=== PATIENT | female | born 1960 | race Caucasian/White ===

== ENCOUNTER 2016-09-16 08:38 | Emergency (ER) | payer MEDICARE, MEDICAID ==
[~2016-09-16] VITALS: Ht 157.5 cm; Wt 90.7 kg
[~2016-09-16 08:38] MED LIST: ALBU8.5H2 IH; AMLO5TAB2 PO; BENZ200C25 PO; BUDE0.5A2 IH; BUDE0.5A7 INH; BUDE6HFA IH; BUSP5POW MC; BUSP5TAB59 PO; CEPH-507 PO; CLAR-19 PO; CLIN-81 PO; CYCL10TA9 PO; FAMO20TA5 PO; HYDR-3584 PO; HYDR-700 PO; HYDR25CA5 PO; IPRA3AMP11 INH; LEVO500T69 PO; LEVO500T78 PO; LISI1TAB6 PO; LOSA1TAB70 PO; MEMA5TAB PO; MEMA5TAB16 PO; METH4TAB PO; METO-270 PO; METO-272 PO; METO25TA PO; Multivitamins/Minerals Therap PO; NCT21TD TD; OXYC-471 PO; PRD20T PO; ROPI0.5T2 PO; RPN.25T PO; SULF1TAB38 PO; TIOT18CA IH; TIZA4CAP8 PO; TIZA4TAB3 PO; TRAM50TA2 PO; TRAZ100T92 PO; TRAZ150T42 PO; TRZ100T PO; WALK1EAC23 MC; [UNRECOGNIZED DRUG - CODE] PO
--- NOTE | 2016-09-16 09:10 | ED Cough/URI ---
General Chief Complaint: Cough/Cold/Flu Symptoms Stated Complaint: COUGH/SORE THROAT/HEADACHE Nursing Triage Note: PT C/O COUGH/URI X 2 WEEKS. PT HAS BEEN SEEN AND TX BY PCP, BUT REPORTS SHE WANTS SOMETHING DIFFERENT FOR HER COUGH. Source: patient History of Present Illness Time seen by provider: 09:05 Initial Comments This 56 white female presents with a persistent nonproductive cough over last week that is not improved with either azithromycin or amoxicillin. Patient has been using Tessalon Perles without improvement in her persistent cough which is Her up through the night. Past medical history includes previous pneumonia. The patient has used steroids in the past with good effect. The patient is under the care of Dr. Will. Allergies and Home Medications Allergies Coded Allergies: NKANo Known Allergies (Verified Allergy, Unknown, 11/12/05) Home Medications Buspirone HCl 5 Gm Powder 5 GM MC BID PRN PRN ANXIETY (Reported) Cephalexin 500 Mg Capsule #15 500 MG PO TID Prescribed by: SHEILA MALONE on 05/15/16 1352 Hydroxyzine HCl 25 Mg Tablet 25 MG PO QID PRN PRN ANXIETY (Reported) Losartan/Hydrochlorothiazide 1 Each Tablet 1 TAB PO DAILY (Reported) Memantine HCl 5 Mg Tablet 5 MG PO BID (Reported) Metoprolol Succinate 25 Mg Tab.er.24h 25 MG PO DAILY (Reported) Ropinirole HCl 0.5 Mg Tablet 0.5-1 MG PO TID (Reported) TAKES 1 TO 2 (0.5MG) TABLETS Tizanidine HCl 4 Mg Capsule 4 MG PO TID PRN PRN MUSCLE SPASMS (Reported) Trazodone HCl 100 Mg Tablet 150 MG PO HS PRN PRN sleep (Reported) TAKES 1 & 1/2 (100MG) TABLETS Constitutional: No chills, No fever EENTM: No ear pain Respiratory: see HPI coughNo short of breath Cardiovascular: No chest pain Gastrointestinal: No nausea, No vomiting Genitourinary: No dysuria, No frequency Musculoskeletal: No back pain Skin: No rash Psychiatric/Neurological: No Symptoms Reported Hematologic/Lymphatic: No Symptoms Reported Past Guaibba-Qlwufr-Mngyps Hx Patient Social History Alcohol Use: Denies Use Recreational Drug Use: No Smoking Status: Current Everyday Smoker Type Used: Cigarettes Former Smoker/When Quit: Oct 16, 2013 Recent Foreign Travel: No Contact w/Someone Who Travel: No Recent Infectious Disease Expo: No Recent Hopitalizations: No Physical Abuse Screen: No Sexual Abuse: No Immunizations Up To Date Tetanus Booster (TDap): Unknown PED Vaccines UTD: No Date of Pneumonia Vaccine: Sep 10, 2015 Date of Influenza Vaccine: May 11, 2015 Seasonal Allergies Seasonal Allergies: Yes Surgeries HX Surgeries: Yes (back surgery, hysterectomy, tubal , hiatal hernia repair) Surgeries: Abdominal, Hysterectomy, Orthopedic Respiratory Hx Respiratory Disorders: Yes Respiratory Disorders: Pneumonia, COPD Cardiovascular Hx Cardiac Disorders: Yes Cardiac Disorders: Hypertension Neurological Hx Neurological Disorders: Yes Neurological Disorders: Concussion Reproductive System Hx Reproductive Disorders: No Sexually Transmitted Disease: No HIV/AIDS: No Female Reproductive Disorders: Ovarian Cyst Genitourinary Hx Genitourinary Disorders: No Gastrointestinal Hx Gastrointestinal Disorders: Yes Gastrointestinal Disorders: Gastroesophageal Reflux, Irritable Bowel Musculoskeletal Hx Musculoskeletal Disorders: Yes Musculoskeletal Disorders: Chronic Back Pain Endocrine Hx Endocrine Disorders: No HEENT HX ENT Disorders: No Loss of Vision: Denies Hearing Impairment: Denies Cancer Hx Cancer: No Psychosocial Hx Psychiatric Problems: Yes Behavioral Health Disorders: Sleep Difficulties, Anxiety, Suicide Attempts Integumentary HX Skin/Integumentary Disorder: No Blood Transfusions Hx Blood Disorders: No Adverse Reaction to a Blood Tr: No Reviewed Nursing Assessment Reviewed/Agree w Nursing PMH: Yes Family Medical History Significant Family History: Heart Disease, Other Conditions/Hx Family Medial History: Alzheimer's disease 19 FATHER, Onset:Unknown Dementia 19 MOTHER, Onset:Unknown No Family History of: AIDS Abdominal aortic aneurysm Jermain's disease Alcoholism Aphasia Arthritis Asthma Cancer of mouth Cardiovascular disease Cataracts Colon cancer Completed stroke Congenital disease Congenital heart disease Coronary thrombosis Cystic fibrosis Deafness or hearing loss Diabetes mellitus Drug abuse Dysphasia Fibrocystic disease of breast Gastroenteritis Glaucoma Headache disorder Hypercholesterolemia Hypertension Infertility Kidney disease Myocardial infarction Neoplasm Not obtainable due to adoption Osteoporosis Parkinson's disease Prostate cancer Psychosocial problem Respiratory disorder Seizure disorder Severe allergy Thyroid disease Tuberculosis Visual disorder Physical Exam Vital Signs Vital Sign - Last 12Hours 09/16/16 08:55 Temp 97.8 Pulse 93 Resp 16 B/P 144/77 Pulse Ox 97 O2 Delivery Room Air Capillary Refill : Less Than 3 Seconds General Appearance: WD/WN no apparent distress HEENT: normal ENT inspection Neck: normal inspection Respiratory: lungs clear other (nearly persistent nonproductive cough.) Cardiovascular: regular rate, rhythm no murmur Gastrointestinal: non tender soft Extremities: normal range of motion Neurologic/Psychiatric: no motor/sensory deficits alert normal mood/affect Skin: normal color warm/dryNo rash Progress/Results/Core Measures Results/Orders Vital Signs/I&O Vital Sign - Last 12Hours 09/16/16 09/16/16 08:55 08:55 Temp 97.8 Pulse 93 Resp 16 B/P 144/77 Pulse Ox 97 O2 Delivery Room Air Room Air Blood Pressure Mean: 99 Progress Note : Time: 09:08 Progress Note I discussed the patient's presentation with her. She declined a chest x-ray or laboratory evaluation. She would like to use an alternate antibiotic. Her primary need however is to suppress her cough. We selected a treatment plan of Bactrim, Tussionex, and a 3 day course of prednisone. She agreed follow-up with Dr. Motta on Sunday if not better and to return over the if she had a further problems or questions. Departure Impression Impression: Primary Impression: Upper respiratory infection Qualified Code: J06.9 - Acute upper respiratory infection, unspecified Disposition: HOME, SELF-CARE Condition: Unchanged Departure-Patient Inst. Decision time for Depature: 09:10 Referrals: SARAH WILL DO (PCP/Family) Primary Care Physician Patient Instructions: Acute Bronchitis, Adult (DC) Add. Discharge Instructions: Bactrim, Tussionex, and prednisone as prescribed. Come back this weekend if any problems. Close follow-up with Dr. Will on Sunday. All discharge instructions reviewed with patient and/or family. Voiced understanding. CARLY FABIAN MD Sep 16, 2016 09:10
[2016-09-16 09:16] VITALS: BP 144/77
== END 2016-09-16 09:16 | disposition home or self-care (01) ==
LOC: EDUNIT# 08:38 → ER 08:39
DX: J06.9 Acute upper respiratory infection, unspecified (principal); I10 Essential (primary) hypertension; J44.9 Chronic obstructive pulmonary disease, unspecified; F17.210 Nicotine dependence, cigarettes, uncomplicated; Z79.899 Other long term (current) drug therapy
CPT/HCPCS: 99283

== ENCOUNTER 2016-11-13 03:01 | Emergency (ER) | payer MEDICARE, MEDICAID ==
[~2016-11-13] VITALS: Ht 157.5 cm; Wt 77.1 kg
[2016-11-13] MEDS ORDERED: RT-ALBUTEROL SULF 2.5 MG/3 ML PRE-MIX VIAL INH STA (03:06)
[2016-11-13] MEDS ORDERED: DEXAMETHASONE 4 MG/ML SDV (DECADRON) IH ONE (03:15)
[2016-11-13] MEDS ORDERED: predniSONE 20 MG TAB PO ONE (03:15)
[2016-11-13] MEDS ORDERED: RT-ALBUTEROL/IPRATROPIUM 3 ML (DUONEB) VIAL INH ONE (03:15)
--- NOTE | 2016-11-13 03:23 | ED Cough/URI ---
General Chief Complaint: Respiratory Problems Stated Complaint: SOA Nursing Triage Note: Pt reports congestion x1 week. Pt now c/o SOA. Pt has hx COPD Source: patient Exam Limitations: no limitations History of Present Illness Time seen by provider: 03:04 Initial Comments Here with report of congestion for the last week and shortness of air tonight. Reports that she is coughing quite a bit and feeling wheezy. States that she's had 2 episodes of pneumonia over the last 3 years. Main concern is the cough tonight. She did not see her doctor this week because she thought she was getting better. Coughing is what caused her the greatest concern tonight. Timing/Duration: week, getting worse Severity/Quality: moderate, dry cough Prior Episodes/Possible Cause: occasional episodes Modifying Factors: Worse With Activity, Worse With Coughing, Improves With Rest Associated Symptoms: cough, fever/chills, nasal congestion, nasal drainage, shortness of breath, sore throat, wheezing Allergies and Home Medications Allergies Coded Allergies: NKANo Known Allergies (Verified Allergy, Unknown, 11/12/05) Home Medications Buspirone HCl 5 Gm Powder 5 GM MC BID PRN PRN ANXIETY (Reported) Cephalexin 500 Mg Capsule #15 500 MG PO TID Prescribed by: SHEILA MALONE on 05/15/16 1352 Hydroxyzine HCl 25 Mg Tablet 25 MG PO QID PRN PRN ANXIETY (Reported) Losartan/Hydrochlorothiazide 1 Each Tablet 1 TAB PO DAILY (Reported) Memantine HCl 5 Mg Tablet 5 MG PO BID (Reported) Metoprolol Succinate 25 Mg Tab.er.24h 25 MG PO DAILY (Reported) Prednisone 20 Mg Tab #8 40 MG PO DAILY Prescribed by: CARLITOS JOHNSON on 11/13/16 0325 Promethazine HCl/Codeine 5 Ml Syrup #60 5 ML PO Q6H PRN PRN COUGH Prescribed by: CARLITOS JOHNSON on 11/13/16 0325 Ropinirole HCl 0.5 Mg Tablet 0.5-1 MG PO TID (Reported) TAKES 1 TO 2 (0.5MG) TABLETS Tizanidine HCl 4 Mg Capsule 4 MG PO TID PRN PRN MUSCLE SPASMS (Reported) Trazodone HCl 100 Mg Tablet 150 MG PO HS PRN PRN sleep (Reported) TAKES 1 & 1/2 (100MG) TABLETS Constitutional: see HPINo chills, No fever EENTM: nose congestion see HPI throat pain Respiratory: see HPI cough short of breath wheezing Cardiovascular: no symptoms reported Gastrointestinal: no symptoms reportedNo nausea, No vomiting Genitourinary: no symptoms reported Musculoskeletal: no symptoms reported Skin: no symptoms reported All Other Systems Reviewed Negative Unless Noted: Yes Past Srasgeo-Vszgic-Frvuru Hx Patient Social History Alcohol Use: Occasionally Uses Recreational Drug Use: No Smoking Status: Former Smoker Type Used: Cigarettes Former Smoker/When Quit: Oct 16, 2013 Recent Foreign Travel: No Contact w/Someone Who Travel: No Recent Infectious Disease Expo: No Recent Hopitalizations: No Immunizations Up To Date Tetanus Booster (TDap): Unknown PED Vaccines UTD: No Date of Pneumonia Vaccine: Sep 10, 2015 Date of Influenza Vaccine: May 11, 2015 Seasonal Allergies Seasonal Allergies: Yes Surgeries HX Surgeries: Yes (back surgery, hysterectomy, tubal , hiatal hernia repair) Surgeries: Abdominal, Hysterectomy, Orthopedic Respiratory Hx Respiratory Disorders: Yes Respiratory Disorders: Pneumonia, COPD Cardiovascular Hx Cardiac Disorders: Yes Cardiac Disorders: Hypertension Neurological Hx Neurological Disorders: Yes Neurological Disorders: Concussion Reproductive System Hx Reproductive Disorders: No Sexually Transmitted Disease: No HIV/AIDS: No Female Reproductive Disorders: Ovarian Cyst Genitourinary Hx Genitourinary Disorders: No Gastrointestinal Hx Gastrointestinal Disorders: Yes Gastrointestinal Disorders: Gastroesophageal Reflux, Irritable Bowel Musculoskeletal Hx Musculoskeletal Disorders: Yes Musculoskeletal Disorders: Chronic Back Pain Endocrine Hx Endocrine Disorders: No HEENT HX ENT Disorders: No Loss of Vision: Denies Hearing Impairment: Denies Cancer Hx Cancer: No Psychosocial Hx Psychiatric Problems: Yes Behavioral Health Disorders: Sleep Difficulties, Anxiety, Suicide Attempts Integumentary HX Skin/Integumentary Disorder: No Blood Transfusions Hx Blood Disorders: No Adverse Reaction to a Blood Tr: No Reviewed Nursing Assessment Reviewed/Agree w Nursing PMH: Yes Family Medical History Significant Family History: Heart Disease, Other Conditions/Hx Family Medial History: Alzheimer's disease 19 FATHER, Onset:Unknown Dementia 19 MOTHER, Onset:Unknown Physical Exam Vital Signs Vital Sign - Last 12Hours 11/13/16 03:04 Temp 98.1 Pulse 90 Resp 18 B/P 119/65 Pulse Ox 98 O2 Delivery Room Air Capillary Refill : Less Than 3 Seconds General Appearance: WD/WN no apparent distress HEENT: PERRL/EOMI pharynx normal Neck: full range of motion supple Respiratory: no accessory muscle use wheezing expiration other (forced wheezes on expiration) Cardiovascular: regular rate, rhythm no murmur Gastrointestinal: non tender soft Extremities: non-tender normal inspection Neurologic/Psychiatric: alert oriented x 3 Skin: normal color warm/dry Progress/Results/Core Measures Results/Orders My Orders Orders-CARLITOS JOHNSON MD Albuterol Pre-Mix Nebs (Rt) (Proventil P (11/13/16 03:06) Albuterol/Ipra Inhalation Soln (Duoneb I (11/13/16 03:15) Dexamethasone Injection (Decadron Inject (11/13/16 03:15) Svn Sm Volume Nebulizer Rt-Rfs (11/13/16 03:06) Svn Sm Volume Nebulizer Rt-Rfs (11/13/16 03:06) Chest Pa/Lat (2 View) (11/13/16 03:06) Prednisone Tablet (Deltasone Tablet) (11/13/16 03:15) Promethazine/ Codeine Syrup (Phenergan W (11/13/16 04:00) Medications Given in ED Current Medications Medications Dose Ordered Sig/Federico Route Start Time Stop Time Status Last Admin Dose Admin Albuterol/ Ipratropium 3 ml ONCE ONCE INH 11/13/16 03:15 11/13/16 03:16 DC 11/13/16 03:24 3 ML Dexamethasone Sodium Phosphate 16 mg ONCE ONCE IH 11/13/16 03:15 11/13/16 03:16 DC 11/13/16 03:24 16 MG Prednisone 40 mg ONCE ONCE PO 11/13/16 03:15 11/13/16 03:16 DC 11/13/16 03:55 40 MG Vital Signs/I&O Vital Sign - Last 12Hours 11/13/16 11/13/16 03:04 03:24 Temp 98.1 Pulse 90 Resp 18 B/P 119/65 Pulse Ox 98 98 O2 Delivery Room Air Blood Pressure Mean: 83 Progress Note : Progress Note Seen and evaluated. Albuterol neb and duo neb ordered. Decadron 16 mg inhaled ordered. Prednisone 40 mg by mouth. Monitor patient. Chest x-ray ordered. No acute findings. Better after treatments. Go pack of Phenergan with codeine cough syrup 1 dose. Discharged home with return precautions. Patient verbalize understanding instructions and agreement with plan. Diagnostic Imaging Diagonstic Imaging: Xray Plain Films/CT/US/NM/MRI: chest Comments No acute findings Reviewed: Reviewed by Me Departure Impression Impression: Primary Impression: Acute bronchitis Qualified Code: J20.9 - Acute bronchitis, unspecified Disposition: HOME, SELF-CARE Condition: Stable Departure-Patient Inst. Decision time for Depature: 03:23 Referrals: SARAH FLEMING DO (PCP/Family) Primary Care Physician Patient Instructions: Acute Bronchitis, Adult (DC) Add. Discharge Instructions: All discharge instructions reviewed with patient and/or family. Voiced understanding. Take medications as directed. Follow-up with your Dr. in 2-3 days for recheck. Return for worse pain, fever, vomiting, weakness, breathing problems or other concerns as needed. Scripts Promethazine HCl/Codeine (Prometh-Codein 6.25-10 mg/5 ml)5 Ml Syrup5 Ml PO Q6H PRN COUGH #60 ML Ref 0 Prov:CARLITOS JOHNSON MD 11/13/16 Prednisone 20 Mg Tab40 Mg PO DAILY #8 TAB Prov:CARLITOS JOHNSON MD 11/13/16 CARLITOS JOHNSON MD Nov 13, 2016 03:23
[2016-11-13] MEDS ORDERED: PRD20T PO (03:25)
[2016-11-13] MEDS ORDERED: PROM5SYR PO (03:25)
[2016-11-13] MEDS ORDERED: PROMETHAZINE/ CODEINE SYRUP 5 ML UDC PO ONE (04:00)
[2016-11-13 04:13] VITALS: BP 109/72
--- NOTE | 2016-11-13 07:52 | Diagnostic Imaging Report ---
INDICATION: Cough, congestion. Compared 05/13/2016. FINDINGS: The lungs are clear. The heart and vessels normal. There is no effusion or pneumothorax. IMPRESSION: No acute-appearing abnormality. Dictated by: Dictated on workstation # [id number]
== END 2016-11-13 04:13 | disposition home or self-care (01) ==
LOC: EDUNIT# 03:01 → ER 03:03
DX: J20.9 Acute bronchitis, unspecified (principal); J44.9 Chronic obstructive pulmonary disease, unspecified; Z79.899 Other long term (current) drug therapy; Z87.891 Personal history of nicotine dependence
CPT/HCPCS: 71020; 94640; 99282

== ENCOUNTER → 2016-12-13 | Outpatient (CLI) | payer MEDICARE, MEDICAID ==
[~2016-12-13] MED LIST changes: +PROM5SYR PO
--- NOTE | 2016-12-13 15:09 | ECHOCARDIOGRAPHY REPORT ---
PROCEDURE PHYSICIAN: ELVIE DAVIS DATE OF PROCEDURE: 12/13/2016 TWO DIMENSIONAL ECHOCARDIOGRAM REPORT PRIMARY PHYSICIAN: OTHER PHYSICIAN: REFERRING PHYSICIAN: Dr. Ned Titus ORDERING PHYSICIAN: INDICATION FOR THE PROCEDURE: 1. Dyspnea. 2. Peripheral edema. MEASUREMENTS DERIVED VALUES LV DIAMETER (LAX) NORMALS NORMALS Diastolic 3 (3.6-5.2) Eject. Fract. 60% (60%+/-6%) Systolic (2.3-3.9) Diastolic Vol. % Shortening (0.22-0.42) Systolic Vol. Aortic Root IVS THICKNESS Diastolic 0.8 (0.6-1.1) LVPW THICKNESS Diastolic 0.8 (0.6-1.1) LA DIAMETER Systolic 3 (2.1-3.7) FINDINGS: 1. Technically difficult study. 2. The left ventricle is normal in size with normal contractility. Endocardium was not well visualized in all segments. Systolic function appeared to be normal. Estimated ejection fraction 60%. Diastolic dysfunction is suggested by Doppler. 3. The left atrium is normal in size. No clot or thrombus were seen within the left atrium. 4. The right atrium and right ventricle are normal in size. No clot or thrombus were seen within the right side. 5. Mitral valve is normal in morphology with mild mitral regurgitation noted by color Doppler flow. No mitral valve prolapse. No mitral valve stenosis. 6. Aortic valve leaflets were not well visualized. There is no significant aortic valve stenosis or regurgitation seen. 7. Tricuspid valve is normal in morphology. Color Doppler flow across tricuspid valve shows trace tricuspid regurgitation. Doppler across tricuspid valve estimated pulmonary artery pressure of 11+ right atrial pressure. 8. Pulmonic valve is functioning normally. 9. No pericardial effusion. CONCLUSION: 1. Normal left ventricular size and systolic function. Endocardium was not well visualized in all segments. Estimated ejection fraction 60%. 2. Diastolic dysfunction is suggested by Doppler. 3. Mild mitral and tricuspid regurgitation. 4. Estimated pulmonary artery pressure of 20 mmHg, improvement compared to the study of April 2016. Job ID: [id number] Dictated Date: 12/13/2016 14:42:20 [employer] Other Ranks Date: 12/13/2016 15:04:44 / elissa
== END ==
LOC: CARD 11:20
PROVIDERS: ATTEND Family Medicine
DX: R06.02 Shortness of breath (principal); R60.0 Localized edema
CPT/HCPCS: 93306

== ENCOUNTER 2017-03-11 19:21 | Emergency (ER) | payer MEDICARE, MEDICAID ==
[~2017-03-11] VITALS: Ht 160 cm; Wt 99.8 kg
[~2017-03-11 19:21] MED LIST changes: +BACL10TA PO; +DOXY100C2 PO; +FURO40TA4 PO; +MICO90PO TOP; +ROPI1TAB2 PO; +SUVO10TA2 PO
--- NOTE | 2017-03-11 19:30 | ED Headache ---
General Chief Complaint: Head/Cervical Problems Stated Complaint: FALL HEAD INJ Source: patient Exam Limitations: no limitations History of Present Illness Time seen by provider: 19:28 Initial Comments To ER per EMS from a local [facility]. [facility] staff reports that they found her on the floor at about 4 p.m. today. I believe that she fallen. Since they helped her up, she's had a progressive increase in confusion. She is not on any blood thinners and this includes not even aspirin. She is known to be at the facility for rehabilitation prior to going home. She is a former alcoholic with history of psychosis and pseudoseizure. She was recently released from [facility] [place] Timing/Duration: 1 week Severity/Quality: moderate Prior Headaches/Recent Trauma: no recent headache/trauma Associated Symptoms: confusion Allergies and Home Medications Allergies Coded Allergies: NKANo Known Allergies (Verified Allergy, Unknown, 11/12/05) Home Medications Furosemide 40 Mg Tablet, 40 MG PO DAILY, (Reported) Losartan/Hydrochlorothiazide 1 Each Tablet, 1 TAB PO DAILY, (Reported) Metoprolol Succinate 25 Mg Tab.er.24h, 25 MG PO DAILY, (Reported) Miconazole Nitrate 90 Gm Powder, 1 GM TOP BID for 14 Days, #1 Prescribed by: NED BAR on 02/15/17 1509 Ropinirole HCl 1 Mg Tablet, 1 MG PO BID@0700,2200, (Reported) Ropinirole HCl 1 Mg Tablet, 2 MG PO 1600, (Reported) TAKES 2 (1 MG) TABLETS Suvorexant 10 Mg Tablet, 10 MG PO HS, #30 Ref 0 Prescribed by: NED BAR on 02/15/17 1509 Trazodone HCl 100 Mg Tablet, 100 MG PO HS, (Reported) Constitutional: see HPI Eyes: No Symptoms Reported Ears, Nose, Mouth, Throat: no symptoms reported Respiratory: no symptoms reported Cardiovascular: no symptoms reported Genitourinary: no symptoms reported Musculoskeletal: no symptoms reported Skin: no symptoms reported Past Rftbehs-Gnsoye-Imlnhd Hx Patient Social History Type Used: Cigarettes Former Smoker/When Quit: Oct 16, 2013 Recent Hopitalizations: No Immunizations Up To Date Tetanus Booster (TDap): Unknown PED Vaccines UTD: No Date of Pneumonia Vaccine: Sep 10, 2015 Date of Influenza Vaccine: May 11, 2015 Seasonal Allergies Seasonal Allergies: Yes Surgeries HX Surgeries: Yes (back surgery, hysterectomy, tubal , hiatal hernia repair) Surgeries: Abdominal, Hysterectomy, Orthopedic Respiratory Hx Respiratory Disorders: Yes Respiratory Disorders: Pneumonia, COPD Cardiovascular Hx Cardiac Disorders: Yes Cardiac Disorders: Hypertension Neurological Hx Neurological Disorders: Yes Neurological Disorders: Concussion Reproductive System Hx Reproductive Disorders: No Sexually Transmitted Disease: No HIV/AIDS: No Female Reproductive Disorders: Ovarian Cyst Genitourinary Hx Genitourinary Disorders: No Gastrointestinal Hx Gastrointestinal Disorders: Yes Gastrointestinal Disorders: Gastroesophageal Reflux, Irritable Bowel Musculoskeletal Hx Musculoskeletal Disorders: Yes Musculoskeletal Disorders: Chronic Back Pain Endocrine Hx Endocrine Disorders: No HEENT HX ENT Disorders: No Loss of Vision: Denies Hearing Impairment: Denies Cancer Hx Cancer: No Psychosocial Hx Psychiatric Problems: Yes Behavioral Health Disorders: Sleep Difficulties, Anxiety, Suicide Attempts Integumentary HX Skin/Integumentary Disorder: No Blood Transfusions Hx Blood Disorders: No Adverse Reaction to a Blood Tr: No Family Medical History Significant Family History: Heart Disease, Other Conditions/Hx Family Medial History: Alzheimer's disease 19 FATHER, Onset:Unknown Dementia 19 MOTHER, Onset:Unknown No Family History of: AIDS Abdominal aortic aneurysm Jermain's disease Alcoholism Aphasia Arthritis Asthma Cancer of mouth Cardiovascular disease Cataracts Colon cancer Completed stroke Congenital disease Congenital heart disease Coronary thrombosis Cystic fibrosis Deafness or hearing loss Diabetes mellitus Drug abuse Dysphasia Fibrocystic disease of breast Gastroenteritis Glaucoma Headache disorder Hypercholesterolemia Hypertension Infertility Kidney disease Myocardial infarction Neoplasm Not obtainable due to adoption Osteoporosis Parkinson's disease Prostate cancer Psychosocial problem Respiratory disorder Seizure disorder Severe allergy Thyroid disease Tuberculosis Visual disorder Physical Exam Vital Signs Vital Sign - Last 12Hours 03/11/17 19:30 Temp 97.7 Pulse 122 Resp 18 B/P (MAP) 178/98 Pulse Ox 94 O2 Delivery Room Air Capillary Refill : General Appearance: WD/WN, no apparent distress HEENT: PERRL/EOMI, normal ENT inspection Neck: non-tender, full range of motion Respiratory: no respiratory distress, no accessory muscle use Gastrointestinal: normal bowel sounds, non tender, soft Extremities: normal range of motion, non-tender Psychiatric: alert, oriented x 3 Crainal Nerves: normal hearing, normal speech Motor/Sensory: no motor deficit, no sensory deficit Skin: normal color, warm/dry Progress/Results/Core Measures Results/Orders Lab Results Laboratory Tests Test 03/11/17 19:50 03/11/17 20:35 Range/Units White Blood Count 7.1 4.3-11.0 10^3/uL Red Blood Count 3.51 L 4.35-5.85 10^6/uL Hemoglobin 10.7 L 11.5-16.0 G/DL Hematocrit 33 L 35-52 % Mean Corpuscular Volume 94 80-99 FL Mean Corpuscular Hemoglobin 31 25-34 PG Mean Corpuscular Hemoglobin Concent 32 32-36 G/DL Red Cell Distribution Width 13.7 10.0-14.5 % Platelet Count 345 130-400 10^3/uL Mean Platelet Volume 9.8 7.4-10.4 FL Neutrophils (%) (Auto) 64 42-75 % Lymphocytes (%) (Auto) 24 12-44 % Monocytes (%) (Auto) 9 0-12 % Eosinophils (%) (Auto) 2 0-10 % Basophils (%) (Auto) 0 0-10 % Neutrophils # (Auto) 4.6 1.8-7.8 X 10^3 Lymphocytes # (Auto) 1.7 1.0-4.0 X 10^3 Monocytes # (Auto) 0.7 0.0-1.0 X 10^3 Eosinophils # (Auto) 0.1 0.0-0.3 10^3/uL Basophils # (Auto) 0.0 0.0-0.1 10^3/uL Prothrombin Time 13.2 12.2-14.7 SEC INR Comment 1.0 0.8-1.4 Sodium Level 145 135-145 MMOL/L Potassium Level 3.8 3.6-5.0 MMOL/L Chloride Level 106 98-107 MMOL/L Carbon Dioxide Level 25 21-32 MMOL/L Anion Gap 14 5-14 MMOL/L Blood Urea Nitrogen 39 H 7-18 MG/DL Creatinine 1.62 H 0.60-1.30 MG/DL Estimat Glomerular Filtration Rate 33 BUN/Creatinine Ratio 24 Glucose Level 129 H 70-105 MG/DL Calcium Level 9.8 8.5-10.1 MG/DL Total Bilirubin 0.4 0.1-1.0 MG/DL Aspartate Amino Transf (AST/SGOT) 21 5-34 U/L Alanine Aminotransferase (ALT/SGPT) 26 0-55 U/L Alkaline Phosphatase 80 40-136 U/L Total Protein 7.1 6.4-8.2 GM/DL Albumin 3.9 3.2-4.5 GM/DL Serum Alcohol < 10 <10 MG/DL Urine Color YELLOW Urine Clarity CLEAR Urine pH 6.5 5-9 Urine Specific [place] 1.010 L 1.016-1.022 Urine Protein NEGATIVE NEGATIVE Urine Glucose (UA) NEGATIVE NEGATIVE Urine Ketones NEGATIVE NEGATIVE Urine Nitrite NEGATIVE NEGATIVE Urine Bilirubin NEGATIVE NEGATIVE Urine Urobilinogen NORMAL NORMAL MG/DL Urine Leukocyte Esterase NEGATIVE NEGATIVE Urine RBC (Auto) NEGATIVE NEGATIVE Urine RBC NONE /HPF Urine WBC NONE /HPF Urine Squamous Epithelial Cells 10-25 H /HPF Urine Crystals NONE /LPF Urine Bacteria FEW H /HPF Urine Casts NONE /LPF Urine Mucus NEGATIVE /LPF Urine Culture Indicated NO My Orders Orders - ELIANE ADKINS APRN Ct Head/Cervical Spine Wo (03/11/17 19:24) Cbc With Automated Diff (03/11/17 19:36) Comprehensive Metabolic Panel (03/11/17 19:36) Protime With Inr (03/11/17 19:36) Drug Screen Stat (Urine) (03/11/17 19:36) Alcohol (03/11/17 19:36) Ua Culture If Indicated (03/11/17 19:37) Vital Signs/I&O Vital Sign - Last 12Hours 03/11/17 19:30 Temp 97.7 Pulse 122 Resp 18 B/P (MAP) 178/98 Pulse Ox 94 O2 Delivery Room Air Diagnostic Imaging Diagonstic Imaging: Xray, CT Comments NAME: DESHAUN RAMIREZ [facility] REC#: [id number] PT STATUS: REG ER : 1960 PHYSICIAN: ELIANE ADKINS APRN ADMIT DATE: 03/11/17/ER Draft Date of Exam:03/11/17 CT HEAD/CERVICAL SPINE WO PROCEDURE: CT head and CT cervical spine without contrast. TECHNIQUE: Multiple contiguous axial images were obtained through the brain and cervical spine without the use of intravenous contrast. Sagittal and coronal reformations through the cervical spine were then performed. INDICATION: Fell, head and neck pain. CT HEAD: There is no mass, shift of the midline or hemorrhage to suggest an acute intracranial abnormality. The ventricles are not abnormally dilated and stable in size when compared to the prior exam of 05/13/16. The cortical atrophy, noted on the prior study, is again evident and no different. Dense basal ganglia calcifications are also again seen. Bone windows show no sign of a fracture or of a destructive lesion. The orbits are symmetrical and within normal limits. The sinuses are generally clear. IMPRESSION: 1. There is no evidence for an acute intracranial abnormality. When compared to the previous study there has been no significant change. 2. If clinical concern regarding an underlying abnormality persists, then MRI would be recommended for further study. CT CERVICAL SPINE: No prior studies are available for comparison. The reconstructed parasagittal images show mild reversal of the normal lordosis of the cervical spine. This may be secondary to muscle spasm and/or positioning. There is severe degenerative disc and bony disease at C6-7. There does not appear to be any significant central stenosis at this level. There is no fracture or acute bony abnormality identified. There is no sign of retropharyngeal edema. The thyroid gland is generally unremarkable. There are areas of increased density along the posterior aspect of each lung apex. These may well be secondary to scar formation, as they seem similar to the prior CTA chest exam of 10/21/11. IMPRESSION: There is no evidence for an acute bony abnormality. Dictated on workstation # [id number] Dict: 03/11/172013 Trans: 03/11/172035 [facility] [id number] Interpreted by: NATA GARCIA MD Electronically signed by: Departure Communication Progress Notes [id number] am unable to find any cause for the patient's altered mental status other than her history of psychosis and alcoholism and dementia. We'll send her back to medical [place]. I discussed this with Dr. Ned Bar and he is in agreement with this plan. He states he is getting her switched over to assisted living this week and that it is not uncommon for her to be intermittently confused. Impression Impression: Primary Impression: Fall at jail Additional Impression: Dementia Disposition: XF SNF Condition: Stable Departure-Patient Inst. Referrals: NED BAR MD (PCP/Family) Primary Care Physician ELIANE ADKINS APRN Mar 11, 2017 19:30
[2017-03-11 19:58] LABS: BASOPHILS % (AUTO) 0 % (0-10); EOSINOPHILS # (AUTO) 0.1 10^3/uL (0.0-0.3); EOSINOPHILS % (AUTO) 2 % (0-10); LYMPHOCYTES # (AUTO) 1.7 X 10^3 (1.0-4.0); LYMPHOCYTES % (AUTO) 24 % (12-44); MEAN CORPUSCULAR HEMOGLOBIN 31 PG (25-34); MEAN CORPUSCULAR HGB CONC 32 G/DL (32-36); MEAN CORPUSCULAR VOLUME 94 FL (80-99); MEAN PLATELET VOLUME 9.8 FL (7.4-10.4); MONOCYTES # (AUTO) 0.7 X 10^3 (0.0-1.0); MONOCYTES % (AUTO) 9 % (0-12); NEUTROPHILS # (AUTO) 4.6 X 10^3 (1.8-7.8); NEUTROPHILS % (AUTO) 64 % (42-75); PLATELET COUNT 345 10^3/uL (130-400); RED BLOOD COUNT 3.51 10^6/uL (4.35-5.85); RED CELL DISTRIBUTION WIDTH 13.7 % (10.0-14.5); WHITE BLOOD COUNT 7.1 10^3/uL (4.3-11.0)
[2017-03-11 20:09] LABS: PROTHROMBIN TIME PATIENT 13.2 SEC (12.2-14.7)
[2017-03-11 20:18] LABS: ALANINE AMINOTRANSFERASE 26 U/L (0-55); ALBUMIN 3.9 GM/DL (3.2-4.5); ALCOHOL < 10 MG/DL (<10); ANION GAP 14 MMOL/L (5-14); ASPARTATE AMINO TRANSFERASE 21 U/L (5-34); BILIRUBIN,TOTAL 0.4 MG/DL (0.1-1.0); BLOOD UREA NITROGEN 39 MG/DL (7-18); BUN/CREATININE RATIO 24; CALCIUM 9.8 MG/DL (8.5-10.1); CARBON DIOXIDE 25 MMOL/L (21-32); CHLORIDE 106 MMOL/L (98-107); CREATININE SERUM 1.62 MG/DL (0.60-1.30); GFR ESTIMATED 33; GLUCOSE 129 MG/DL (70-105); POTASSIUM 3.8 MMOL/L (3.6-5.0); SODIUM 145 MMOL/L (135-145); TOTAL PROTEIN 7.1 GM/DL (6.4-8.2)
--- NOTE | 2017-03-11 20:36 | Diagnostic Imaging Report ---
PROCEDURE: CT head and CT cervical spine without contrast. TECHNIQUE: Multiple contiguous axial images were obtained through the brain and cervical spine without the use of intravenous contrast. Sagittal and coronal reformations through the cervical spine were then performed. INDICATION: Fell, head and neck pain. CT HEAD: There is no mass, shift of the midline or hemorrhage to suggest an acute intracranial abnormality. The ventricles are not abnormally dilated and stable in size when compared to the prior exam of 05/13/16. The cortical atrophy, noted on the prior study, is again evident and no different. Dense basal ganglia calcifications are also again seen. Bone windows show no sign of a fracture or of a destructive lesion. The orbits are symmetrical and within normal limits. The sinuses are generally clear. IMPRESSION: 1. There is no evidence for an acute intracranial abnormality. When compared to the previous study there has been no significant change. 2. If clinical concern regarding an underlying abnormality persists, then MRI would be recommended for further study. CT CERVICAL SPINE: No prior studies are available for comparison. The reconstructed parasagittal images show mild reversal of the normal lordosis of the cervical spine. This may be secondary to muscle spasm and/or positioning. There is severe degenerative disc and bony disease at C6-7. There does not appear to be any significant central stenosis at this level. There is no fracture or acute bony abnormality identified. There is no sign of retropharyngeal edema. The thyroid gland is generally unremarkable. There are areas of increased density along the posterior aspect of each lung apex. These may well be secondary to scar formation, as they seem similar to the prior CTA chest exam of 10/21/11. IMPRESSION: There is no evidence for an acute bony abnormality. Dictated by: Dictated on workstation # [id number]
[2017-03-11 20:43] LABS: BILIRUBIN,URINE NEGATIVE (NEGATIVE); KETONES,URINE NEGATIVE (NEGATIVE); LEUKOCYTE ESTERASE ,URINE NEGATIVE (NEGATIVE); NITRITE,URINE NEGATIVE (NEGATIVE); PH,URINE 6.5 (5-9); PROTEIN,URINE NEGATIVE (NEGATIVE); UROBILINOGEN,URINE NORMAL (NORMAL)
[2017-03-11 23:16] VITALS: BP 122/51
== END 2017-03-11 23:11 ==
LOC: EDUNIT# 19:21 → ER 19:22
DX: F03.90 Unspecified dementia, unspecified severity, without behavioral disturbance, psychotic disturbance, mood disturbance, and anxiety (principal); J44.9 Chronic obstructive pulmonary disease, unspecified; I10 Essential (primary) hypertension; F41.9 Anxiety disorder, unspecified; K21.9 Gastro-esophageal reflux disease without esophagitis; Z87.891 Personal history of nicotine dependence
CPT/HCPCS: 36415; 70450; 72125; 80053; 80306; 80320; 81000; 85025; 85610

== ENCOUNTER → 2018-02-18 | Outpatient (CLI) | payer MEDICARE, MEDICAID ==
[~2018-02-18] MED LIST changes: +LOSA1TAB23 PO; -LOSA1TAB70 PO; -METO-270 PO; +METO-387 PO
--- NOTE | 2018-02-18 08:09 | Diagnostic Imaging Report ---
Indication: Annual physical exam, obstructive airways disease PA and lateral chest Heart size and pulmonary vascularity are normal. Lungs are clear. There are no effusions or pneumothoraces. Impression: Negative chest. Dictated by: Dictated on workstation # [id number]
--- NOTE | 2018-02-18 09:20 | Diagnostic Imaging Report ---
INDICATION: Routine screening. Comparison is made with prior mammogram from 01/06/16 and 01/08/14. 2-D and 3-D bilateral screening mammography was performed with CAD. The current study was also evaluated with a Computer Aided Detection (CAD) system. After fibroglandular densities are identified bilaterally. No spiculated mass or malignant appearing microcalcifications are seen. There are benign soft tissues present. The axillae are unremarkable. IMPRESSION: BI-RADS category 2 No mammographic features suspicious for malignancy are identified. ACR BI-RADS Category 2: Benign findings. Result letter will be mailed to the patient. Note: At least 10% of breast cancer is not imaged by mammography. Dictated by: Dictated on workstation # [id number]
== END ==
LOC: RAD 07:40
PROVIDERS: ATTEND Family Medicine
DX: Z12.31 Encounter for screening mammogram for malignant neoplasm of breast (principal); J44.9 Chronic obstructive pulmonary disease, unspecified
CPT/HCPCS: 71046; 77067

== ENCOUNTER → 2019-07-03 | Outpatient (CLI) | payer MEDICARE, MEDICAID ==
[~2019-07-03] MED LIST changes: -AMLO5TAB2 PO; +AMLO5TAB9 PO; -TIZA4TAB3 PO; +TIZA4TAB4 PO; +TRAZ-190 PO; -TRAZ100T92 PO
--- NOTE | 2019-07-03 10:10 | Diagnostic Imaging Report ---
INDICATION: COPD COMPARISON: 02/18/2018 FINDINGS: Frontal and lateral views of the chest demonstrate normal heart size and pulmonary vascularity. The lungs are clear. There are no signs of infiltrate, pleural effusions or pneumothoraces. The visualized osseous structures show no acute abnormalities. IMPRESSION: 1. No acute process. No signs of infiltrates, effusions or pneumothoraces. Dictated by: Dictated on workstation # [id number]
--- NOTE | 2019-07-03 12:34 | Diagnostic Imaging Report ---
INDICATION: Routine screening. COMPARISON is made with prior mammograms from 02/18/2018 and 01/06/2016. 2-D and 3-D bilateral screening mammography was performed with CAD. FINDINGS: Scattered fibroglandular densities are identified bilaterally. Scattered benign-appearing calcifications are again noted. Benign-appearing nodules appear stable bilaterally. No spiculated mass or malignant appearing microcalcifications are seen. Axillae are unremarkable. IMPRESSION: BI-RADS Category 2 No mammographic features suspicious for malignancy are identified. ACR BI-RADS Category 2: Benign findings. Result letter will be mailed to the patient. Note: At least 10% of breast cancer is not imaged by mammography. Dictated by: Dictated on workstation # [id number]
== END ==
LOC: RAD 09:35
PROVIDERS: ATTEND Family Medicine
DX: Z12.31 Encounter for screening mammogram for malignant neoplasm of breast (principal); J44.9 Chronic obstructive pulmonary disease, unspecified
CPT/HCPCS: 71046; 77067

== ENCOUNTER 2019-07-24 05:53 | Outpatient (CLI) | payer MEDICARE, MEDICAID ==
[~2019-07-24] VITALS: Ht 157 cm; Wt 90.0 kg
[2019-07-24] MEDS ORDERED: QUET25TA73 PO (09:20)
[2019-07-24] MEDS ORDERED: MEMA5TAB PO (09:20)
[2019-07-24] MEDS ORDERED: MELO15TA39 PO (09:20)
== END 2019-07-24 09:22 | disposition home or self-care (01) ==
LOC: PREOP 05:53
PROVIDERS: ATTEND Surgery
DX: Z01.818 Encounter for other preprocedural examination (principal)

== ENCOUNTER 2019-07-30 09:17 | Day surgery (SDC) | payer MEDICARE, MEDICAID ==
--- NOTE | 2019-07-25 09:46 | HISTORY AND PHYSICAL ---
DATE OF SERVICE: DATE OF SURGERY: 07/30/2019 ATTENDING PHYSICIAN: Dr. Ned Titus. HISTORY OF PRESENT ILLNESS: The patient is a 59-year-old female who was referred over to us in need of a screening colonoscopy. The patient reports her last colonoscopy was in 2013 where she did have polyps detected, which did come back as tubular adenoma and was in the right colon. She denies any family history of colon cancer as well as no blood in her stool. She denies any problems with constipation, but does report an irritable bowel syndrome and does have some diarrhea. She does have a significant history of smoking 2 packs per day for 45 years and continues to currently smoke. She also has a history of alcoholism in which she reports that she would drink 4-5 mixed drinks per day for approximately 40+ years. PAST MEDICAL HISTORY: IBS, predominantly diarrhea, hypertension, bilateral lower extremity edema, CHF, insomnia, dementia, arthritis, COPD, restless leg syndrome, anxiety, hypercholesterolemia, obesity, alcoholism, and tobacco dependence. PAST SURGICAL HISTORY: Partial hysterectomy, tubal in 1983, hiatal hernia repair in 2004, and cervical spine surgery from [facility] in 2001. ALLERGIES: No known drug allergies. MEDICATIONS: Namenda 5 mg b.i.d., hydroxyzine 25 mg q.6 hours p.r.n. Meloxicam 15 mg daily. SOCIAL HISTORY: Positive for smoke 2 packs per day for 45 years, previous alcohol 4-5 mixed drinks for 40 years, quit in 2018. FAMILY HISTORY: Mother, stroke and hypertension. Father, Alzheimer disease. Brother, diabetes. Vital signs - blood pressure 160/90. Current weight is 207.9, 5 feet 2 inches height. REVIEW OF SYSTEMS: This is a well-nourished female, in no acute distress. She is not experiencing any shortness of breath or difficulty breathing. No chest pain, palpitations or diaphoresis. No nausea, vomiting or abdominal pain. She does report diarrhea, but no constipation. No red blood per rectum. No dark tarry stools. No fever or chills. No recent inadvertent weight loss. All other review of systems is negative. PHYSICAL EXAMINATION: CHEST: Scattered rales and rhonchi bilaterally. HEART: Regular, no murmurs. EXTREMITIES: No lower extremity edema. Negative Homans sign. HEENT: No scleral icterus. No cervical adenopathy. ABDOMEN: Soft, nontender, nondistended. SKIN: Warm, dry and pink. NEUROLOGIC: Awake, alert, oriented x3. ASSESSMENT AND PLAN: A 59-year-old female with a history of polyps, who is in need of a screening colonoscopy. The risks and benefits of the procedure as well as the procedure and home care instructions were explained to the patient. The patient verbalized understanding of instructions and agrees to this plan. At this time, we will proceed with scheduling the patient for a screening colonoscopy. Job ID: [id number] DocumentID: [id number] Dictated Date: 07/22/2019 10:31:52 Glove Cleaner Date: 07/22/2019 11:22:51 Dictated By: HYACINTH GREER APRN
[~2019-07-30] VITALS: Ht 157 cm; Wt 90.0 kg
[~2019-07-30 09:17] MED LIST changes: +MELO15TA39 PO; +QUET25TA73 PO
[2019-07-30] MEDS ORDERED: LACTATED RINGERS 1,000 ML IV STA (09:18)
[2019-07-30] MEDS ORDERED: LACTATED RINGERS 1,000 ML IV ONE (09:21)
[2019-07-30] MEDS ORDERED: LIDOCAINE JELLY 2% 6 ML SYRINGE MM PRN (09:30)
[2019-07-30 09:38] VITALS: BP 136/71
--- NOTE | 2019-07-30 09:48 | Progress Note-Pre Operative ---
Pre-Operative Progress Note H&P Reviewed The H&P was reviewed, patient examined and no changes noted. Date Seen by Provider: Jul 30, 2019 Time Seen by Provider: 09:30 Date H&P Reviewed: Jul 30, 2019 Time H&P Reviewed: :30 Pre-Operative Diagnosis: screening/hx colon polyp GIN DOBBS MD Jul 30, 2019 09:48 POS
--- NOTE | 2019-07-30 09:55 | Discharge Inst-Surgical ---
D/C Lap Instructions-RINKU Follow Up Activity as tolerated High Fiber Diet 25g or more per day Avoid Alcohol, Caffeine, Spicy [place] and Acid foods. Drink 64 fluid oz or more of fluids per day. Symptoms to Report: Fever over 101 degree F, Nausea/Vomiting If any problems/questions: Contact your physician or go to Emergency Room GIN DOBBS MD Jul 30, 2019 09:55 POS
[2019-07-30] MEDS ORDERED: ACETAMINOPHEN 325 MG TABLET PO PRN (10:00)
[2019-07-30] MEDS ORDERED: ONDANSETRON 4 MG/2 ML (SDV) Z0FRAN IVP PRN (10:00)
[2019-07-30] MEDS ORDERED: morphine INJ 10 MG/ML 1ML (SYR OR VIAL) IVP PRN ×2 (10:00)
[2019-07-30] MEDS ORDERED: HYDROcodone/APAP 5 MG/325 MG (LORTAB) TAB PO PRN (10:00)
[2019-07-30] MEDS ORDERED: MIDAZOLAM 2 MG/2 ML (VERSED) VIAL ONE (10:19)
[2019-07-30] MEDS ORDERED: proPOfol 200 MG/20 ML (DIPRIVAN) VIAL IV ONE ×2 (10:19→10:39)
[2019-07-30] MEDS ORDERED: LIDOCAINE JELLY 2% 6 ML SYRINGE ONE (10:23)
[2019-07-30 10:45] VITALS: BP 128/60
[2019-07-30 10:50] VITALS: BP 110/55
[2019-07-30 10:55] VITALS: BP_SYST 103; BP_SYST 112; BP_DIAS 54; BP_DIAS 61
--- NOTE | 2019-07-30 11:03 | Progress Note-Post Operative ---
Post-Operative Progess Note Surgeon (s)/Hospital Carrier (s) Surgeon GIN DOBBS MD Hospital Carrier: none Pre-Operative Diagnosis screening/hx colon polyp Post-Operative Diagnosis mild chronic stage 2 ext and int hemorrhoids, moderate sigmoid diverticulosis. Procedure & Operative Findings Date of Procedure 07/30/19 Procedure Performed/Findings colonoscopy Anesthesia Type mac Estimated Blood Loss Estimated blood loss (mL): minimal Specimens/Packing Specimens Removed none GIN DOBBS MD Jul 30, 2019 11:03 POS
[2019-07-30 11:25] VITALS: BP 118/59
[2019-07-30 11:26] VITALS: BP 118/59
--- NOTE | 2019-07-30 14:47 | Anesthesia-General Post-Op ---
MAC Patient Condition Mental Status/LOC: Same as Preop Cardiovascular: Satisfactory Nausea/Vomiting: Absent Respiratory: Satisfactory Pain: Controlled Complications: Absent Post Op Complications Complications None Follow Up Care/Instructions Patient Instructions None needed. Anesthesiology Discharge Order Discharge Order Patient was seen after the procedure and she was doing well, no complaints, stable vital signs, no apparent adverse anesthesia problems. NIKITA HERNANDEZ DO Jul 30, 2019 14:47 POS
--- NOTE | 2019-07-30 15:34 | OPERATIVE REPORT ---
DATE OF SERVICE: 07/30/2019 ATTENDING PRIMARY CARE PHYSICIAN: Dr. Ned Titus. PREOPERATIVE DIAGNOSES: History of colon polyp, change in bowel habits encompassing diarrhea. POSTOPERATIVE DIAGNOSES: Mild chronic stage II external and internal hemorrhoids, moderate sigmoid diverticulosis. PROCEDURE: Colonoscopy. SURGEON: Gin Dobbs MD ANESTHESIA: Monitored anesthesia care. ESTIMATED BLOOD LOSS: Minimal. FINDINGS: Same as postoperative diagnoses. DISPOSITION: The patient tolerated the procedure well. INDICATIONS: The patient is a 59-year-old female in need of a screening colonoscopy. Her last colonoscopy was in 2013 where she states that 2 polyps were detected, which came back as tubular adenomas along the right colon. She reports that she has also had a change in bowel habits including diarrhea on a daily basis. She does report a previous history of constipation. She states that she did have a significant history of alcohol consumption; however, did stop this. She does not report any family history of colon cancer. DESCRIPTION OF PROCEDURE: The patient was brought to the endoscopy suite, laid in left lateral decubitus position. After adequate IV pain and sedating medications and monitored anesthesia care, a digital rectal examination was performed, which revealed chronic stage II external and internal hemorrhoids, not actively edematous nor inflamed and no bleeding. Normal sphincter tone was felt and there were no palpable masses. The endoscope was then intubated to the anus and rectum gently insufflated. The endoscope was then advanced to the valves of [place] of the rectum with no polyps or any neoplasms identified. Through the sigmoid colon, there was a moderate sigmoid diverticulosis identified. There were no mucosal inflammatory changes to indicate any active diverticulitis. The endoscope was then advanced to the remainder of the descending, transverse and ascending colon to the cecum. These segments were normal. There were no polyps or any neoplasms identified throughout the colon or rectum. The endoscope was then slowly withdrawn while taking a second look and suctioning of residual air with no additional findings. The patient tolerated the procedure well. We will recommend medical management with a high fiber diet with 25 grams of fiber daily as well as significant amounts of water to promote soft stools on a daily basis, which are not hard and well-formed as well as not a watery diarrhea; however, the importance of having softer stools and a faster transit throughout the gastrointestinal tract was stressed. She does not have any family history of colon cancer and she is asymptomatic. Otherwise, she may wait 10 years for next colonoscopy. Job ID: [id number] DocumentID: [id number] Dictated Date: 07/30/2019 10:58:31 Help Aid Date: 07/30/2019 15:33:05 Dictated By: GNI DOBBS MD
== END 2019-07-30 12:00 | disposition home or self-care (01) ==
LOC: ENDO 09:17
PROVIDERS: ATTEND Surgery
DX: K64.1 Second degree hemorrhoids (principal); K64.8 Other hemorrhoids; K57.30 Diverticulosis of large intestine without perforation or abscess without bleeding; R19.7 Diarrhea, unspecified; J44.9 Chronic obstructive pulmonary disease, unspecified; K21.9 Gastro-esophageal reflux disease without esophagitis; I50.9 Heart failure, unspecified; I11.0 Hypertensive heart disease with heart failure; M19.90 Unspecified osteoarthritis, unspecified site; E66.09 Other obesity due to excess calories; E78.00 Pure hypercholesterolemia, unspecified; G25.81 Restless legs syndrome; G47.00 Insomnia, unspecified; F17.210 Nicotine dependence, cigarettes, uncomplicated; F41.9 Anxiety disorder, unspecified; F03.90 Unspecified dementia, unspecified severity, without behavioral disturbance, psychotic disturbance, mood disturbance, and anxiety; Z90.710 Acquired absence of both cervix and uterus; Z68.37 Body mass index [BMI] 37.0-37.9, adult; Z86.010 Personal history of colon polyps; Z98.51 Tubal ligation status; Z82.49 Family history of ischemic heart disease and other diseases of the circulatory system; Z83.2 Family history of diseases of the blood and blood-forming organs and certain disorders involving the immune mechanism; Z83.3 Family history of diabetes mellitus

== ENCOUNTER → 2020-12-22 | Outpatient (CLI) | payer MEDICARE, MEDICAID ==
[~2020-12-22] MED LIST changes: +AMLO-250 PO; -AMLO5TAB9 PO; -MEMA5TAB16 PO; +MEMA5TAB43 PO; -METO-387 PO; +MTP25TSR PO; -OXYC-471 PO; +OXYC1TAB11 PO; +QUET25TA34 PO; -QUET25TA73 PO; -ROPI0.5T2 PO; +ROPI0.5T4 PO; +ROPI1TAB PO; -ROPI1TAB2 PO; -TRAM50TA2 PO; -TRAZ-190 PO; +TRAZ-227 PO; +TRM50T PO
--- NOTE | 2020-12-22 09:52 | Diagnostic Imaging Report ---
Indication: Routine screening. Comparison is made with prior mammogram 07/03/2019 and 02/18/2018. 2-D and 3-D bilateral screening mammography was performed with CAD. Scattered fibroglandular densities are identified bilaterally. There is a density in the lateral left breast on the CC view at anterior depth. Additional views recommended. There are scattered benign calcifications No malignant appearing microcalcifications are seen. Axillae are unremarkable. IMPRESSION: BI-RADS 0 Left breast density. Additional views are recommended for further evaluation. ACR BI-RADS Category 0: Incomplete. (Needs additional imaging evaluation). Result letter will be mailed to the patient. Note: At least 10% of breast cancer is not imaged by mammography. Dictated by: Dictated on workstation # [id number]
--- NOTE | 2020-12-22 12:23 | Diagnostic Imaging Report ---
INDICATION: COPD, chronic heart failure. COMPARISON: 07/03/2019. FINDINGS: Single frontal view of the chest demonstrates normal heart size and pulmonary vascularity. The lungs are well aerated and clear. No large pleural effusion or pneumothorax is seen. The visualized osseous structures show no acute abnormalities. IMPRESSION: 1. No acute cardiopulmonary process. Dictated by: Dictated on workstation # [id number]
== END ==
LOC: RAD 08:58
PROVIDERS: ATTEND Family Medicine
DX: Z12.31 Encounter for screening mammogram for malignant neoplasm of breast (principal); J44.9 Chronic obstructive pulmonary disease, unspecified; I50.32 Chronic diastolic (congestive) heart failure
CPT/HCPCS: 71045; 77063; 77067

== ENCOUNTER → 2020-12-29 | Outpatient (CLI) | payer MEDICARE, MEDICAID ==
--- NOTE | 2020-12-29 09:22 | Diagnostic Imaging Report ---
INDICATION: Left breast density. Patient presents for additional views. COMPARISON: Correlation is made with the recent screening study from 12/22/2020. TECHNIQUE: Unilateral left 2D and 3D diagnostic mammography was performed. This included rolled CC, spot compression CC, spot compression ML, and conventional 90 degree lateral views. The current study was evaluated with a Computer Aided Detection (CAD) system. FINDINGS: The additional views show a persistent tiny cluster of circumscribed densities in the outer left breast at the 3 o'clock location approximately 6 cm from the nipple. This may represent a small cluster of cysts. No other abnormalities are seen. IMPRESSION: Persistent density in the outer left breast at approximately the 3 o'clock location 6 cm from the nipple. Further evaluation with ultrasound is recommended and will be performed today. ACR BI-RADS Category 0: Incomplete. (Needs additional imaging evaluation). Result letter will be mailed to the patient. Note: At least 10% of breast cancer is not imaged by mammography. Dictated by: Dictated on workstation # [id number]
--- NOTE | 2020-12-29 11:22 | Diagnostic Imaging Report ---
INDICATION: Left breast density. COMPARISON: Correlation is made with the diagnostic mammogram from earlier this same day as well as screening mammogram from 12/22/2020. FINDINGS: Sonographic interrogation of the outer left breast was performed. There is an intramammary lymph node at the 3 o'clock location 12 cm from the nipple measuring 6 mm x 4 mm x 5 mm. It is uncertain if this correlates with the mammographic density. No other sonographic abnormalities are seen. IMPRESSION: There is an intraparenchymal lymph node at the 3 o'clock location of the left breast 12 cm from the nipple. This may not represent the density noted mammographically. The mammographic density does have benign features. Even so, a followup left mammogram in 6 months is recommended to show continued stability. ACR BI-RADS Category 3: Probably benign findings. Dictated by: Dictated on workstation # [id number]
== END ==
LOC: RAD 09:15
PROVIDERS: ATTEND Family Medicine
DX: R92.2 Inconclusive mammogram (principal)
CPT/HCPCS: 76642; 77065; G0279

== ENCOUNTER → 2021-06-15 | Outpatient (CLI) | payer MEDICARE, MEDICAID ==
[~2021-06-15] MED LIST changes: -DOXY100C2 PO; +DOXY100C5 PO; -QUET25TA34 PO; +QUET25TA35 PO
--- NOTE | 2021-06-15 14:54 | Diagnostic Imaging Report ---
INDICATION: Left breast density. Patient presents for six-month followup. Correlation is made with prior mammogram from 12/22/2020. Unilateral left 2-D and 3-D diagnostic mammography was performed with CAD. Scattered fibroglandular densities left breast are noted. The small density in the outer portion of the left breast anterior depth appears stable. There is also uninterpretable lymph node in the far posterior and outer left breast which appears stable. No new mass is seen. No malignant-appearing microcalcifications are identified. IMPRESSION: Stable left mammogram. Additional followup in 6 months is recommended to show continued stability. BI-RADS Category 3 ACR BI-RADS Category 3: Probably benign findings. Result letter will be mailed to the patient. Note: At least 10% of breast cancer is not imaged by mammography. Dictated by: Dictated on workstation # [id number]
== END ==
LOC: RAD 13:43
PROVIDERS: ATTEND Family Medicine
DX: R92.2 Inconclusive mammogram (principal)
CPT/HCPCS: 77065; G0279

== ENCOUNTER → 2021-07-22 | Outpatient (CLI) | payer MEDICARE, MEDICAID | LOC: CARD 10:10 | PROVIDERS: ATTEND Internal Medicine Cardiovascular Disease | DX: I11.9 Hypertensive heart disease without heart failure (principal); I25.10 Atherosclerotic heart disease of native coronary artery without angina pectoris | CPT/HCPCS: 93306 ==

== ENCOUNTER → 2021-08-03 | Outpatient (CLI) | payer MEDICARE, MEDICAID ==
[~2021-08-03] VITALS: Ht 157 cm; Wt 100.0 kg
[~2021-08-03] MED LIST changes: +CATHETER FLUSH 10 ML SYR IV PRN; +REGADENOSON 0.4 MG/5 ML SYR (LEXISCAN) IV ONE; +TIZA-186 PO; -TIZA4TAB4 PO
[2021-08-03 09:24] VITALS: BP 159/64
--- NOTE | 2021-08-03 12:03 | Cardiology Stress Test Report ---
Stress Test Report Date of Procedure/Referring: Date of Procedure: Aug 03, 2021 PCP Elvie Sesay MD Admitting Physician Ned Titus MD Indications: HTN Baseline Heart Rate: 74 Baseline Blood Pressure: Blood Pressure Systolic: 159 Blood Pressure Diastolic: 64 Baseline Vitals Vital Signs Date Time Temp Pulse Resp B/P (MAP) Pulse Ox O2 Delivery O2 Flow Rate FiO2 08/03/21 09:24 86 17 159/64 (95) 98 Room Air Baseline EKG: Baseline EKG: NSR Summary After explaining the procedure to the patient, she signed a consent and then brought to the stress nuclear laboratory. Patient received 0.4 mg Lexiscan for stress test, ECG, heart rate and blood pressure were monitored continuously. Resting and stress dose of radio tracer were injected, imaging was acquired and reviewed in short axis, horizontal long axis and vertical long axis views. TID: 1.05 SSS: 6 SDS: 2 EF: 77 1. Patient tolerated Lexiscan well 2. Breast attenuation with typical female pattern, no significant ischemia or infarction on SPECT images 3. Normal left ventricular size, EF 77% ELVIE SESAY MD Aug 03, 2021 12:03
== END ==
LOC: CARD 07:45
PROVIDERS: ATTEND Internal Medicine Cardiovascular Disease
DX: I25.10 Atherosclerotic heart disease of native coronary artery without angina pectoris (principal); I10 Essential (primary) hypertension
CPT/HCPCS: 78452; 93017; A9502

== ENCOUNTER → 2021-12-23 | Outpatient (CLI) | payer MEDICARE, MEDICAID ==
[~2021-12-23] MED LIST changes: -CATHETER FLUSH 10 ML SYR IV PRN; -REGADENOSON 0.4 MG/5 ML SYR (LEXISCAN) IV ONE
--- NOTE | 2021-12-23 11:10 | Diagnostic Imaging Report ---
Indication: Respiratory distress PA and lateral chest Heart size and pulmonary vascularity are normal. Lungs are clear. There are no effusions or pneumothoraces. IMPRESSION: No acute abnormalities in the chest. Dictated by: Dictated on workstation # [id number]
--- NOTE | 2021-12-23 14:18 | Diagnostic Imaging Report ---
INDICATION: Routine screening. COMPARISON is made with prior mammograms 12/22/2020 and 07/03/2019. 2-D and 3-D bilateral screening mammography was performed with CAD. Both breasts are primarily involutional. Intraparenchymal lymph nodes noted bilaterally appear stable. There are scattered benign calcifications. No spiculated mass or malignant-appearing microcalcifications are seen. Axillae are unremarkable. IMPRESSION: BI-RADS Category 2 No mammographic features suspicious for malignancy are identified. ACR BI-RADS Category 2: Benign findings. Result letter will be mailed to the patient. Note: At least 10% of breast cancer is not imaged by mammography. Dictated by: Dictated on workstation # [id number]
== END ==
LOC: RAD 09:15
PROVIDERS: ATTEND Family Medicine
DX: Z12.31 Encounter for screening mammogram for malignant neoplasm of breast (principal); J44.9 Chronic obstructive pulmonary disease, unspecified
CPT/HCPCS: 71046; 77063; 77067